=== PATIENT | female | born 1985 ===

== ENCOUNTER 2021-01-26 13:00 | Outpatient (CLI) | payer OTHER | END 2021-01-26 14:00 | disposition home or self-care (01) | LOC: PRENATAL 13:00 | PROVIDERS: ATTEND Obstetrics & Gynecology Maternal & Fetal Medicine | DX: O34.31 Maternal care for cervical incompetence, first trimester (principal); O36.80X1 Pregnancy with inconclusive fetal viability, fetus 1; Z36.89 Encounter for other specified antenatal screening; Z3A.01 Less than 8 weeks gestation of pregnancy ==

== ENCOUNTER 2021-02-08 09:09 | Inpatient (IN) | payer OTHER ==
[~2021-02-08] VITALS: Ht 154.9 cm; Wt 80.7 kg
[2021-02-08] MEDS ORDERED: PRENATAL TABLE1 EAC1 PO (10:55)
== END 2021-02-09 09:30 | disposition home or self-care (01) | DRG 819 ==
LOC: LDR 09:09
PROVIDERS: ADMIT Obstetrics & Gynecology Maternal & Fetal Medicine; ATTEND Obstetrics & Gynecology Maternal & Fetal Medicine
PROC: 0UVC7ZZ Restriction of Cervix, Via Natural or Artificial Opening (ICD-10-PCS; principal; 2021-02-08 17:00)
DX: O34.32 Maternal care for cervical incompetence, second trimester (principal); Z3A.15 15 weeks gestation of pregnancy; Z20.822 Contact with and (suspected) exposure to COVID-19

== ENCOUNTER 2021-03-15 15:55 | Outpatient (CLI) | payer OTHER ==
[~2021-03-15 15:55] MED LIST: PRENATAL TABLE1 EAC1 PO
== END 2021-03-15 17:01 | disposition home or self-care (01) ==
LOC: PRENATAL 15:55
PROVIDERS: ATTEND Obstetrics & Gynecology Maternal & Fetal Medicine
DX: O35.0XX1 Maternal care for (suspected) central nervous system malformation in fetus, fetus 1 (principal); O35.3XX1 Maternal care for (suspected) damage to fetus from viral disease in mother, fetus 1; O98.512 Other viral diseases complicating pregnancy, second trimester; O35.1XX1 Maternal care for (suspected) chromosomal abnormality in fetus, fetus 1; Z36.89 Encounter for other specified antenatal screening; Z3A.20 20 weeks gestation of pregnancy

== ENCOUNTER 2021-05-10 15:40 | Outpatient (CLI) | payer OTHER | END 2021-05-10 16:16 | disposition home or self-care (01) | LOC: PRENATAL 15:40 | PROVIDERS: ATTEND Obstetrics & Gynecology Maternal & Fetal Medicine | DX: O26.843 Uterine size-date discrepancy, third trimester (principal); O34.33 Maternal care for cervical incompetence, third trimester; Z36.89 Encounter for other specified antenatal screening; Z3A.28 28 weeks gestation of pregnancy ==